=== PATIENT | female | born 1955 | race Caucasian/White ===

== ENCOUNTER 2022-10-16 08:12 | Outpatient (CLI) | payer BC | END 2022-10-16 08:13 | disposition home or self-care (01) | LOC: NM 08:12 | PROVIDERS: ATTEND Family Medicine | DX: E05.00 Thyrotoxicosis with diffuse goiter without thyrotoxic crisis or storm (principal) | CPT/HCPCS: 78014; A9516 ==

== ENCOUNTER 2022-11-20 12:40 | Outpatient (CLI) | payer BC | END 2022-11-20 12:41 | disposition home or self-care (01) | LOC: NM 12:40 | PROVIDERS: ATTEND Internal Medicine Endocrinology, Diabetes & Metabolism | DX: E05.00 Thyrotoxicosis with diffuse goiter without thyrotoxic crisis or storm (principal) | CPT/HCPCS: 79005; A9517 ==

== ENCOUNTER 2025-07-28 08:53 | Outpatient (CLI) | payer BC, MEDICARE | END 2025-07-28 08:54 | disposition home or self-care (01) | LOC: SCSRAD 08:53 | PROVIDERS: ATTEND Student in an Organized Health Care Education/Training Program | DX: M25.551 Pain in right hip (principal) ==